=== PATIENT | female | born 1950 | race Caucasian/White ===

== ENCOUNTER 2017-05-09 08:02 | Outpatient (CLI) | payer MEDICARE, BC ==
[2017-05-09 10:55] LABS: Hemoglobin 14.5 g/dL (12.0-16.0); Mean Corpuscular Hemoglobin 28.3 pg (27.0-31.0); Mean Corpuscular Volume 88.5 fl (81.0-99.0); Mean Platelet Volume 7.9 fL (7.4-10.4); Platelet Count 210 thou/uL (130-400); RBC Distribution Width 11.9 % (11.5-14.5); Red Blood Cell (RBC) Count 5.12 mill/uL (4.20-5.40); White Blood Cell (WBC) Count 7.6 thou/uL (4.8-10.8)
[2017-05-09 10:57] LABS: PTT 28.3 SEC (22.9-36.1); Prothrombin Time 13.3 SEC (12.0-14.7)
[2017-05-09 11:02] LABS: Bilirubin Negative (Negative); Blood, Urine Negative (Negative); Glucose, Urine (Dipstick) Negative (Negative); Leukocyte Small (Negative); Nitrite Negative (Negative); Protein, Urine (Dipstick) Negative (Neg-Trace); Urobilinogen 0.2 mg/dL (0.2-1.0); pH, Urine 6.5 (5.0-9.0)
[2017-05-09 11:03] LABS: Clarity CLEAR (Clear)
[2017-05-09 11:04] LABS: Bacteria/HPF 2+ HPF (None Seen); Hyaline Casts/LPF NONE SEEN LPF (0-3 Hyaline); RBC/HPF None Seen HPF (0-3); Squamous Epithelial 0-3 HPF (0-3)
[2017-05-09 11:14] LABS: Anion Gap 11 mmol/L (10-20); BUN (Urea Nitrogen) 18 mg/dL (9.8-20.1); Calc. Creatinine Clearance 0 mL/min (70-130); Calcium 9.6 mg/dL (7.8-10.44); Carbon Dioxide 28 mmol/L (23-31); Chloride 104 mmol/L (98-107); Estimated GFR-MDRD 52; Glucose 164 mg/dL (80-115); Potassium 3.9 mmol/L (3.5-5.1); Sodium 139 mmol/L (136-145)
--- NOTE | 2017-06-05 11:04 | EKG ---
Test Reason : Blood Pressure : / mmHG Vent. Rate : 059 BPM Atrial Rate : 059 BPM P-R Int : 182 ms QRS Dur : 074 ms QT Int : 418 ms P-R-T Axes : 059 033 034 degrees QTc Int : 413 ms Sinus bradycardia Low voltage QRS Abnormal ECG When compared with ECG of 30-MAY-2016 13:36, Nonspecific T wave abnormality has replaced inverted T waves in Inferior leads T wave amplitude has decreased in Lateral leads Confirmed by SHAW MILES M.D. ([id number] on 06/05/2017 11:04:20 AM Referred By: HANNAH Confirmed By:SHAW MILES M.D.
== END 2017-05-09 08:03 | disposition home or self-care (01) ==
LOC: LABBT 08:02
PROVIDERS: ATTEND Orthopaedic Surgery
DX: Z01.818 Encounter for other preprocedural examination (principal); Z96.652 Presence of left artificial knee joint
CPT/HCPCS: 80048; 81001; 85027; 85610; 85730; 86850; 86900; 86901; 87081; 93005; 93010

== ENCOUNTER 2017-05-16 06:55 | Day surgery (SDC) | payer MEDICARE, BC ==
[2017-05-09 08:49] VITALS: BMI 32.4
[2017-05-16] MEDS ORDERED: Fentanyl 100 MCG/2 ML VIAL ONE (08:05)
[2017-05-16] MEDS ORDERED: Midazolam HCl 2 mg/2 ml Vial ONE (08:05)
[2017-05-16] MEDS ORDERED: Lidocaine 1% (PF) 30 ML VIAL ONE (08:09)
[2017-05-16] MEDS ORDERED: CEFAZOLIN/Water 2 GM/20 ML SYRINGE ONE (08:16)
[2017-05-16] MEDS ORDERED: Vancomycin HCl 1.5 GM, Admixture Fee 1 EACH in Sodium Chloride 0.9% 250 ML 300 ML IVPB SCH (08:30)
[2017-05-16] MEDS ORDERED: Acetaminophen 1,000 MG in Premix Bag 1 BAG IVPB PRN (08:40)
[2017-05-16] MEDS ORDERED: Ondansetron HCl/PF 4 MG/2 ML Vial IVP PRN ×2 (08:41→11:56)
[2017-05-16] MEDS ORDERED: Promethazine HCl 25 MG/ML VIAL IM PRN ×2 (08:41→11:56)
[2017-05-16] MEDS ORDERED: Fentanyl 100 MCG/2 ML VIAL IV PRN (08:41)
[2017-05-16] MEDS ORDERED: traMADol HCl 50 MG TAB PO PRN ×2 (08:41)
[2017-05-16] MEDS ORDERED: Zolpidem Tartrate 5 MG TAB PO PRN (08:41)
[2017-05-16] MEDS ORDERED: Levofloxacin 500 mg/D5W 100 ml Premix Bag ONE (09:13)
[2017-05-16] MEDS ORDERED: Bupivacaine/Epinephrine 0.25% 30 ML VIAL ONE ×2 (09:50→13:05)
[2017-05-16] MEDS ORDERED: Ondansetron HCl/PF 4 MG/2 ML Vial ONE ×2 (11:27→13:52)
[2017-05-16] MEDS ORDERED: Tranexamic Acid 1,000 MG in Sodium Chloride 0.9% 100 ML IVPB SCH (11:45)
[2017-05-16 11:50] LABS: Bilirubin Negative (Negative); Blood, Urine Negative (Negative); Clarity CLEAR (Clear); Glucose, Urine (Dipstick) Negative (Negative); Leukocyte Negative (Negative); Nitrite Negative (Negative); Protein, Urine (Dipstick) Negative (Neg-Trace)
[2017-05-16 11:52] LABS: Bacteria/HPF None Seen HPF (None Seen); Hyaline Casts/LPF 0-3 HYALINE CAST LPF (0-3 Hyaline); Pathc Cast-AUWi Flag 0.72 (0-2.49); Squamous Epithelial 0-3 HPF (0-3); WBC/HPF None Seen HPF (0-3)
[2017-05-16] MEDS ORDERED: Promethazine HCl 25 MG/ML VIAL SLOW IVP PRN (11:56)
--- NOTE | 2017-05-16 12:51 | RAD ---
TWO VIEWS OF THE LEFT KNEE: Comparison: 04-07-15 FINDINGS: Since the comparison examination there has been interval placement of a left total knee prosthesis. T he prostatic component projects in the expected position. The calcified lesion involving the distal f emur appears unchanged from the comparison examination, likely reflecting an old bone infarct or smal l low grade chondral lesion. IMPRESSION: Post op. POS: [facility]
[2017-05-16] MEDS ORDERED: Bupivacaine HCl 0.5%/Epinephrine 1:200,000/PF 30 ml Vial ONE (13:05)
[2017-05-16] MEDS ORDERED: PHENYLEPHRINE-NS 100 MCG/ML 10 ML SYRINGE ONE (13:52)
[2017-05-16] MEDS ORDERED: PROPOFOL 200 MG/20 ML VIAL ONE (13:52)
[2017-05-16] MEDS ORDERED: Dexamethasone 20 MG/5 ML VIAL ONE (13:52)
[2017-05-16] MEDS ORDERED: Acetaminophen 325 MG TAB PO PRN (14:07)
[2017-05-16] MEDS ORDERED: oxyCODONE/Acetaminophen 5 mg/325 mg Tablet PO PRN (14:07)
[2017-05-16] MEDS ORDERED: diphenhydrAMINE 25 MG CAP PO PRN (14:07)
[2017-05-16] MEDS ORDERED: Fentanyl 100 MCG/2 ML VIAL SLOW IVP PRN (14:07)
--- NOTE | 2017-05-16 15:04 | OP ---
DATE OF PROCEDURE: 05/16/2017 PREOPERATIVE DIAGNOSIS: Left knee osteoarthritis, valgus. POSTOPERATIVE DIAGNOSIS: Left knee osteoarthritis, valgus. PROCEDURE PERFORMED: Left total knee arthroplasty. STAFF: Morgan Kapadia M.D. OCEAN FISHING GUIDE: Alex Maloney PA-C. ANESTHESIA: Judah. LMA, adductor canal single shot sciatic blocks. ESTIMATED BLOOD LOSS: 150 mL. TOURNIQUET TIME: 92 minutes at 300 mmHg. ANTIBIOTICS: Ancef 2 grams, vancomycin 1.5, Levaquin 500 mg. IMPLANTS: A size #4 Triathlon CR femur, size 4 tibial baseplate, a S27 patella and a 4 CS tibia, 4 x 9 mm CS X3 poly. COMPLICATIONS: None. HISTORY OF PRESENT ILLNESS: Ms. Barajas is a 66-year-old female presenting with left knee pain, she had a valgus knee. I discussed with patient the risks, benefits of left total knee arthroplasty to i nclude pain, scar, bleeding, infection, damage to vital structures, loss of life, limb, decreased ran ge of motion or strength. The patient understood these risks and benefits and elected to proceed. T he patient's left lower extremity was prepped and draped in sterile fashion. Tourniquet was brought up and left up for 92 minutes. Anterior midline incision medial patellar approach was used to excise the fat pad, excised medial soft tissue, femur, patellar, removed osteophytes, exposed distal tibia mapped out the femur, cut at 11 and 2, which is just a skin cut off of the lateral femoral condyle du e to our cut. We placed our block, pinned it into place. We actually sized to 5 without notching, t he 4 seemed like it would notch, but felt like it notched medial lateral so we cut a 5 to begin, cut anterior and posterior, removed the osteophytes. We moved to the tibia, exposed our tibia, excised t he medial lateral portion of the anterior mid lateral meniscus. We everted. We had placed our pickl e fork in place to expose the posterior PCL retractor to expose the tibia. We cut initially and 5 a nd moved to a 4 and a 7 mm because of the tightness of the procedure. We cut our tibia, excised our soft tissue, to decompress the PCL, removed the posterior osteophytes, put our tray into place, put o ur [address], put our #[address]. We had good flexion and extension, but we were jus t very tight. I was concerned about how tight we were as well as our inability to track for our dawn lla, we cut our tibia. We resized the femur down to 4 from a 5 because the patella did not track deondre te as well. We everted, cut our patella, cut 2 and A27 patella placed in position, had better tracki ng, After completion of this, we went from 24 at the thickness down to about 12, placed an A27. We then notched left lateral release to help with our tracking of patella, washed. We placed our keel, drilled our holes for our femur, cemented our tibia, our femur, placed a 9 mm poly, cemented our dawn llar insert, washed, closed with #2 Vicryl, #2 Quill, 0 Quill, 2-0 Quill, and glue. The patient will follow the [facility] protocol. The patient will be followed in-house.
--- NOTE | 2017-05-16 15:23 | PDOC.PN ---
- Subjective Encounter Start Date: 05/16/17 Encounter Start Time: 15:21 -: old records requested/rev Subjective: admitted for left knee replacement -: consulted for medical management Patient seen and examined. No new complaints. No overnight events - Objective MAR Reviewed: Yes Vital Signs & Weight: Weight Weight 195 lb Radiology Reviewed by me: Yes (knee xray) Phys Exam - Physical Examination Constitutional: NAD HEENT: PERRLA, moist MMs, sclera anicteric Neck: no JVD, supple Respiratory: no wheezing, no rales, no rhonchi Cardiovascular: RRR, no significant murmur, no rub Gastrointestinal: soft, non-tender, no distention, positive bowel sounds Musculoskeletal: no edema, pulses present left knee with dressing Neurological: non-focal, normal sensation Psychiatric: normal affect, A&O x 3 Dx/Plan - Plan cont current plan of care, PT/OT * continue aspirin for DVT prophylaxis as per protocol * continue protonix for GI prophylaxis * Code status: Full code * Home medication reconciled * continue PT/OT as per [facility] protocol treatment. * Pain control with pain meds * medication reviewed as below * symptomatic treatment.. Review of Systems - Review of Systems Constitutional: negative: fever, chills, sweats, weakness, malaise, other ENT: negative: Ear Pain, Ear Discharge, Nose Pain, Nose Discharge, Nose Congestion, Mouth Pain, Mouth Swelling, Throat Pain, Throat Swelling, Other Respiratory: negative: Cough, Dry, Shortness of Breath, Hemoptysis, SOB with Excertion, Pleuritic Pain, Sputum, Wheezing Cardiovascular: negative: chest pain, palpitations, orthopnea, paroxysmal nocturnal dyspnea, edema, light headedness, other Gastrointestinal: negative: Nausea, Vomiting, Abdominal Pain, Diarrhea, Constipation, Melena, Hematochezia, Other Genitourinary: negative: Dysuria, Frequency, Incontinence, Hematuria, Retention , Other Musculoskeletal: negative: Neck Pain, Shoulder Pain, Arm Pain, Back Pain, Hand Pain, Leg Pain, Foot Pain, Other Skin: negative: Rash, Lesions, Arsenio, Bruising, Other - Medications/Allergies Allergies/Adverse Reactions: Allergies Allergy/AdvReac Type Severity Reaction Status Date / Time hydrocodone Allergy Intermediate ITCHING, Verified 05/09/17 08:50 AND SWELLING Medications: Current Medications Acetaminophen (Tylenol) 650 mg PO Q4H PRN PRN Reason: PRATT/ T > 101F; Mild Pain (1-3) Aspirin (Ecotrin) 81 mg PO BID [facility] Cefazolin Sodium (Ancef) 2 gm SLOW IVP 0100,0900,1700 [facility] Stop: 05/17/17 01:01 Diphenhydramine HCl (Benadryl) 25 mg PO Q6H PRN PRN Reason: Itching Fentanyl (Sublimaze) 50 mcg IV Q1H PRN PRN Reason: BREAKTHROUGH PAIN Fentanyl (Sublimaze) 100 mcg SLOW IVP Q1H PRN PRN Reason: Severe Pain (7-10) Ferrous Gluconate (Fergon) 324 mg PO BID [facility] Acetaminophen 1,000 mg/ Device 100 mls @ 400 mls/hr IVPB Q6H PRN PRN Reason: Fever/Mild Pain Stop: 05/17/17 08:41 Bupivacaine HCl 50 ml/ Sodium (Chloride) 100 mls @ 0 mls/hr NERVE BLCK INF [facility]I PRN Reason: As Directed Dextrose/Sodium Chloride (D5 1/2 Ns) 1,000 mls @ 100 mls/hr IV .Q10H [facility] Levofloxacin 500 mg/ Device 100 mls @ 100 mls/hr IVPB 0900 [facility] Stop: 05/17/17 09:59 Vancomycin HCl 1.5 gm/ Sodium (Chloride) 300 mls @ 200 mls/hr IVPB 2100 [facility] Stop: 05/16/17 22:29 Iron/Minerals/Multivitamins (Theragran M) 1 tab PO DAILY [facility] Ketorolac Tromethamine (Toradol) 15 mg IVP Q6HR [facility] Stop: 05/18/17 06:01 Ondansetron HCl (Zofran) 4 mg IVP Q6H PRN PRN Reason: Nausea/Vomiting Oxycodone/Acetaminophen (Percocet 5/325) 2 tab PO Q4H PRN PRN Reason: Pain Promethazine HCl (Phenergan) 12.5 mg IM Q4H PRN PRN Reason: Nausea Senna/Docusate Sodium (Senokot S) 2 tab PO BID [facility] Sodium Chloride (Flush - Normal Saline) 10 ml IVF Q12HR [facility] Sodium Chloride (Flush - Normal Saline) 10 ml IVF PRN PRN PRN Reason: Saline Flush Tramadol HCl (Ultram) 50 mg PO Q6H PRN PRN Reason: Mild Pain (1-3) Tramadol HCl (Ultram) 100 mg PO Q6H PRN PRN Reason: Moderate Pain 4-6 Zolpidem Tartrate (Ambien) 5 mg PO HSPRN PRN PRN Reason: Insomnia History of Present Illnes - History of Present Illness Reason for Visit: admitted for left knee replacement History of Present Illness: s/p left total knee replacement failed outpt conservative treatment pain controlled - Past Medical History Cardiac: HTN Gastrointestinal: GERD Musculoskeletal: Osteoarthritis ENT: Allergic rhinitis Endocrine: Hypothyroidism - Past Surgical History Past Surgical History: Cholecystectomy, Hernia Repair (umbilical hernia ), Other (left foot surgery, cyst removed from neck, finger surgery, lasik eye surgery), Total Knee Replacement - Past Family History Family History: CVA - Past Social History Smoke: Quit (in 1987) Alcohol: Occassional Drugs: None Lives: With Family Domestic Violence: Negative
[2017-05-16] MEDS ORDERED: Loperamide HCl 2 MG CAP PO PRN (15:30)
[2017-05-16] MEDS ORDERED: Sodium Chloride 0.65% Nasal 44 ML BOT EA NARE PRN (15:30)
[2017-05-16] MEDS ORDERED: Eucerin (Mineral Oil/Petrolatum,White) 30 gm Jar TOP PRN (15:30)
[2017-05-16] MEDS ORDERED: Artificial Tears 18 DROP/0.9 ML EA EYE PRN (15:30)
[2017-05-16] MEDS ORDERED: hydrALAZINE 20 MG/ML VIAL SLOW IVP PRN (15:30)
[2017-05-16] MEDS ORDERED: Chloraseptic Spray 180 ml Bottle PO PRN (15:30)
[2017-05-16] MEDS ORDERED: Milk Of Magnesia 30 ML UDCUP PO PRN (15:30)
[2017-05-16] MEDS ORDERED: Diabetic Tussin 200 MG/10 ML UDCUP PO PRN (15:30)
[2017-05-16] MEDS ORDERED: Senokot 8.6 MG TAB PO PRN (15:30)
[2017-05-16] MEDS ORDERED: Ondansetron ODT 4 MG TAB PO PRN (15:30)
[2017-05-16] MEDS ORDERED: Mag-Al 1200 mg/1200 mg/30 ML UDCUP PO PRN (15:30)
[2017-05-16] MEDS: Ketorolac Tromethamine 30 MG/ML VIAL IVP SCH ×2 (17:57→17:58)
[2017-05-16] MEDS: Dextrose 5 %-0.45 % NaCl 1,000 ML IV SCH (18:06)
[2017-05-16] MEDS: CEFAZOLIN/Water 2 GM/20 ML SYRINGE SLOW IVP SCH (18:48)
[2017-05-16] MEDS ORDERED: Vancomycin HCl 1.5 GM in Sodium Chloride 0.9% 250 ML 300 ML IVPB SCH (21:00)
[2017-05-16] MEDS: Ferrous Gluconate 324 MG TAB PO SCH (21:36)
[2017-05-16] MEDS: Senokot S 8.6-50 MG TAB PO SCH (21:37)
[2017-05-16] MEDS: Aspirin 81 mg Enteric Coated Tablet PO SCH (21:39)
[2017-05-17] MEDS: Bupivacaine 0.5% 50 ML in Sodium Chloride 0.9% 50 ML NERVE BLCK SCH ×2 (00:53→16:37)
[2017-05-17] MEDS: Ketorolac Tromethamine 30 MG/ML VIAL IVP SCH ×5 (00:58→23:41)
[2017-05-17] MEDS: Dextrose 5 %-0.45 % NaCl 1,000 ML IV SCH ×3 (01:00→20:12)
[2017-05-17] MEDS: CEFAZOLIN/Water 2 GM/20 ML SYRINGE SLOW IVP SCH (03:09)
[2017-05-17 05:46] LABS: Hemoglobin 12.4 g/dL (12.0-16.0); Mean Corpuscular HGB CONC 32.9 g/dL (32.0-36.0); Mean Corpuscular Hemoglobin 29.1 pg (27.0-31.0); Mean Corpuscular Volume 88.2 fl (81.0-99.0); Mean Platelet Volume 8.2 fL (7.4-10.4); Platelet Count 158 thou/uL (130-400); RBC Distribution Width 11.7 % (11.5-14.5); Red Blood Cell (RBC) Count 4.27 mill/uL (4.20-5.40); White Blood Cell (WBC) Count 14.5 thou/uL (4.8-10.8)
[2017-05-17] MEDS: Levothyroxine Sodium 125 MCG TAB PO SCH (05:56)
[2017-05-17] MEDS: Valsartan 80 MG TAB PO SCH (08:44)
[2017-05-17] MEDS: Hydrochlorothiazide 25 MG TAB PO SCH (08:44)
[2017-05-17] MEDS: Spironolactone 25 MG TAB PO SCH (08:45)
[2017-05-17] MEDS: Multivitamin W/ Minerals 1 TAB PO SCH (08:45)
[2017-05-17] MEDS: Vit A,C & E/Lutein/Minerals Tablet PO SCH (08:45)
[2017-05-17] MEDS: Multivit, Therapeutic 1 TAB PO SCH (08:45)
[2017-05-17] MEDS: Ferrous Gluconate 324 MG TAB PO SCH ×2 (08:45→20:18)
[2017-05-17] MEDS: Senokot S 8.6-50 MG TAB PO SCH ×2 (08:46→20:19)
[2017-05-17] MEDS: Aspirin 81 mg Enteric Coated Tablet PO SCH ×2 (08:46→20:18)
[2017-05-17] MEDS ORDERED: Non-Formulary Item 1 EACH (Valsartan/Hydrochlorothiazide [Valsartan-Hctz 320-12.5 Mg Tab] PO SCH (09:00)
--- NOTE | 2017-05-17 09:05 | PDOC.PN ---
- Subjective Encounter Start Date: 05/17/17 Encounter Start Time: 07:45 Patient seen and examined. No new complaints. No overnight events - Objective Resuscitation Status: Resuscitation Status FULL:Full Resuscitation MAR Reviewed: Yes Vital Signs & Weight: Vital Signs (12 hours) Temp Pulse Resp BP BP Pulse Ox 05/17/17 07:15 97.4 F L 63 16 119/84 92 L 05/17/17 04:39 97.9 F 67 18 122/71 93 L 05/16/17 23:47 97.9 F 67 18 124/72 92 L Weight Weight 195 lb I&O: 05/16/17 05/17/17 05/18/17 06:59 06:59 06:59 Intake Total 2040 Output Total 1150 Balance 890 Result Diagrams: 05/17/17 05:14 Phys Exam - Physical Examination Constitutional: NAD HEENT: PERRLA, moist MMs, sclera anicteric Neck: no JVD, supple Respiratory: no wheezing, no rales, no rhonchi Cardiovascular: RRR, no significant murmur, no rub Gastrointestinal: soft, non-tender, no distention, positive bowel sounds Musculoskeletal: no edema, pulses present left knee surgical site is clean Neurological: non-focal, normal sensation, moves all 4 limbs Lymphatic: no nodes Psychiatric: normal affect, A&O x 3 Skin: no rash, normal turgor Dx/Plan (1) Status post total left knee replacement Code(s): Z96.652 - PRESENCE OF LEFT ARTIFICIAL KNEE JOINT Status: Acute (2) GERD (gastroesophageal reflux disease) Code(s): K21.9 - GASTRO-ESOPHAGEAL REFLUX DISEASE WITHOUT ESOPHAGITIS Status: Chronic (3) Hypertension Code(s): I10 - ESSENTIAL (PRIMARY) HYPERTENSION Status: Chronic (4) Hypothyroidism Code(s): E03.9 - HYPOTHYROIDISM, UNSPECIFIED Status: Chronic (5) Obesity (BMI 30.0-34.9) Code(s): E66.9 - OBESITY, UNSPECIFIED Status: Chronic - Plan cont current plan of care, plan discussed w/ family, PT/OT * continue aspirin for DVT prophylaxis as per protocol * continue protonix for GI prophylaxis * Code status: Full code * continue Home medication * continue PT/OT as per [facility] protocol treatment. * Pain control with pain meds * medication reviewed as below * symptomatic treatment * continue nerve block * will sign off * call if needed. Review of Systems - Review of Systems Constitutional: negative: fever, chills, sweats, weakness, malaise, other Eyes: negative: Pain, Vision Change, Conjunctivae Inflammation, Eyelid Inflammation, Redness, Other ENT: negative: Ear Pain, Ear Discharge, Nose Pain, Nose Discharge, Nose Congestion, Mouth Pain, Mouth Swelling, Throat Pain, Throat Swelling, Other Respiratory: negative: Cough, Dry, Shortness of Breath, Hemoptysis, SOB with Excertion, Pleuritic Pain, Sputum, Wheezing Cardiovascular: negative: chest pain, palpitations, orthopnea, paroxysmal nocturnal dyspnea, edema, light headedness, other Gastrointestinal: negative: Nausea, Vomiting, Abdominal Pain, Diarrhea, Constipation, Melena, Hematochezia, Other Genitourinary: negative: Dysuria, Frequency, Incontinence, Hematuria, Retention , Other Musculoskeletal: negative: Neck Pain, Shoulder Pain, Arm Pain, Back Pain, Hand Pain, Leg Pain, Foot Pain, Other Skin: negative: Rash, Lesions, Arsenio, Bruising, Other Neurological: negative: Weakness, Numbness, Incoordination, Change in Speech, Confusion, Seizures, Other - Medications/Allergies Allergies/Adverse Reactions: Allergies Allergy/AdvReac Type Severity Reaction Status Date / Time hydrocodone Allergy Intermediate ITCHING, Verified 05/09/17 08:50 AND SWELLING Medications: Current Medications Acetaminophen (Tylenol) 650 mg PO Q4H PRN PRN Reason: PRATT/ T > 101F; Mild Pain (1-3) Al Hydroxide/Mg Hydroxide (Maalox) 15 ml PO Q4H PRN PRN Reason: Heartburn or Indigestion Artificial Tears (Tears Naturale) 0 drop EA EYE PRN PRN PRN Reason: Dry Eyes Aspirin (Ecotrin) 81 mg PO BID [facility] Last Admin: 05/17/17 08:46 Dose: 81 mg Diphenhydramine HCl (Benadryl) 25 mg PO Q6H PRN PRN Reason: Itching Fentanyl (Sublimaze) 50 mcg IV Q1H PRN PRN Reason: BREAKTHROUGH PAIN Ferrous Gluconate (Fergon) 324 mg PO BID [facility] Last Admin: 05/17/17 08:45 Dose: 324 mg Guaifenesin (Robitussin Sf) 200 mg PO Q4H PRN PRN Reason: Cough Hydralazine HCl (Apresoline) 10 mg SLOW IVP Q4H PRN PRN Reason: Systolic BP > 180 Hydrochlorothiazide (Hydrochlorothiazide) 12.5 mg PO DAILY [facility] Last Admin: 05/17/17 08:44 Dose: 12.5 mg Bupivacaine HCl 50 ml/ Sodium (Chloride) 100 mls @ 0 mls/hr NERVE BLCK INF [facility] PRN Reason: As Directed Last Admin: 05/17/17 00:53 Dose: 100 mls Dextrose/Sodium Chloride (D5 1/2 Ns) 1,000 mls @ 100 mls/hr IV .Q10H [facility] Last Admin: 05/17/17 01:00 Dose: Not Given Levofloxacin 500 mg/ Device 100 mls @ 100 mls/hr IVPB 0900 [facility] Stop: 05/17/17 09:59 Last Admin: 05/17/17 08:51 Dose: 100 mls Iron/Minerals/Multivitamins (Theragran M) 1 tab PO DAILY [facility] Last Admin: 05/17/17 08:45 Dose: 1 tab Ketorolac Tromethamine (Toradol) 15 mg IVP Q6HR [facility] Stop: 05/18/17 06:01 Last Admin: 05/17/17 05:56 Dose: 15 mg Levothyroxine Sodium (Synthroid) 125 mcg PO 0600 [facility] Last Admin: 05/17/17 05:56 Dose: 125 mcg Loperamide HCl (Imodium) 2 mg PO PRN PRN PRN Reason: Diarrhea/Loose Stools Magnesium Hydroxide (Milk Of Magnesium) 30 ml PO DAILYPRN PRN PRN Reason: Constipation Metoprolol Succinate ([facility] Xl) [facility] [place] Admin: 05/17/17 08:44 Dose: 50 mg Mineral Oil/White Petrolatum (Eucerin Cream) 0 gm TOP BIDPRN PRN PRN Reason: Dry Skin Multivitamins (Theragran) [facility] [place] Last Admin: 05/17/17 08:45 Dose: Not Given Multivitamins/Minerals (Ocuvite With Lutein) 1 tab PO QAM [facility] Last Admin: 05/17/17 08:45 Dose: 1 tab Ondansetron HCl (Zofran) 4 mg IVP Q6H PRN PRN Reason: Nausea/Vomiting Ondansetron HCl (Zofran Odt) 4 mg PO Q6H PRN PRN Reason: Nausea/Vomiting Oxycodone/Acetaminophen (Percocet 5/325) 2 tab PO Q4H PRN PRN Reason: Pain Pantoprazole Sodium (Protonix) [facility] [place] Last Admin: 05/17/17 08:45 Dose: 80 mg Phenol (Chloraseptic [place] 180 Ml Bot) 0 ml PO PRN PRN PRN Reason: Sore Throat Promethazine HCl (Phenergan) 12.5 mg IM Q4H PRN PRN Reason: Nausea Senna (Senokot) 2 tab PO HSPRN PRN PRN Reason: Constipation Senna/Docusate Sodium (Senokot S) 2 tab PO BID [facility] Last Admin: 05/17/17 08:46 Dose: 2 tab Sodium Chloride (Flush - Normal Saline) 10 ml IVF Q12HR [facility] Last Admin: 05/17/17 09:04 Dose: Not Given Sodium Chloride (Flush - Normal Saline) 10 ml IVF PRN PRN PRN Reason: Saline Flush Sodium Chloride (Boyle Nasal [place] 0.65%) 0 ml EA NARE QIDPRN PRN PRN Reason: Nasal Congestion Spironolactone (Aldactone) 25 mg PO QAM [facility] Last Admin: 05/17/17 08:45 Dose: 25 mg Tramadol HCl (Ultram) 50 mg PO Q6H PRN PRN Reason: Mild Pain (1-3) Tramadol HCl (Ultram) 100 mg PO Q6H PRN PRN Reason: Moderate Pain 4-6 Valsartan (Diovan) 320 mg PO DAILY [facility] Last Admin: 05/17/17 08:44 Dose: 320 mg Zolpidem Tartrate (Ambien) 5 mg PO HSPRN PRN PRN Reason: Insomnia
--- NOTE | 2017-05-17 10:24 | DIS ---
DATE OF ADMISSION: 05/16/2017 DATE OF CONSULT: 05/16/2017 DATE OF DISCHARGE: Pending. PRIMARY ATTENDING: Dr. Morgan Kapadia. PRIMARY DISCHARGE DIAGNOSIS: Status post left total knee replacement. SECONDARY DISCHARGE DIAGNOSES: Gastroesophageal reflux disease, hypertension, hypothyroidism, obesit y with BMI 32. PRIMARY PROCEDURES AND OPERATIONS: Left total knee replacement. RADIOLOGICAL INVESTIGATION: Knee x-ray. SIGNIFICANT LABORATORY DATA: Hemoglobin 12.4. Urinalysis normal. DISCHARGE MEDICATIONS: Cranberry 500 mg p.o. daily, Synthroid 125 mcg p.o. daily, Toprol-XL 50 mg p. o. daily, multivitamin 1 tablet p.o. daily, Protonix 80 mg p.o. daily, Aldactone 25 mg p.o. daily, va lsartan with hydrochlorothiazide one tablet p.o. daily, multivitamin 1 capsule p.o. daily. Patient w ill get aspirin for DVT prophylaxis as well as patient will get pain medication as per primary team. CONTRAINDICATIONS: None. CODE STATUS: FULL CODE. INPATIENT CONSULTANTS: Dr. Kapadia was primary. [facility] team was consulted for medical comanagement. ALLERGIES: HYDROCODONE. DISCHARGE PLAN: Post hospital, the patient will follow up with Dr. Isaura Vallecillo and Dr. Morgan elias as instructed. HOSPITAL COURSE: A 66-year-old female who was electively admitted for left total knee replacement by Dr. Kapadia, which was done on 05/16/2017 without any complication. Postoperatively, at [facility], [facility] team was consulted for medical comanagement. We resumed patient's home medication while in hospital. The patient's pain was controlled with pain medication. The patient did very well wit h physical therapy as per [facility] protocol treatment. On discharge, the patient will contin ue all her previous home medications. She was given aspirin for deep venous thrombosis prophylaxis. Patient is seen and examined at bedside today. Please see my progress note from today for further d etail. The patient's all medical problems are stable and we will sign off. Call us if needed.
[2017-05-18] MEDS: Bupivacaine 0.5% 50 ML in Sodium Chloride 0.9% 50 ML NERVE BLCK SCH (00:45)
[2017-05-18] MEDS: Ketorolac Tromethamine 30 MG/ML VIAL IVP SCH (06:15)
[2017-05-18] MEDS: Levothyroxine Sodium 125 MCG TAB PO SCH (06:16)
[2017-05-18] MEDS: Dextrose 5 %-0.45 % NaCl 1,000 ML IV SCH (07:33)
[2017-05-18 07:55] LABS: Hemoglobin 11.2 g/dL (12.0-16.0); Mean Corpuscular HGB CONC 32.5 g/dL (32.0-36.0); Mean Corpuscular Hemoglobin 28.4 pg (27.0-31.0); Mean Corpuscular Volume 87.6 fl (81.0-99.0); Mean Platelet Volume 8.4 fL (7.4-10.4); Platelet Count 167 thou/uL (130-400); RBC Distribution Width 12.1 % (11.5-14.5); Red Blood Cell (RBC) Count 3.92 mill/uL (4.20-5.40); White Blood Cell (WBC) Count 9.8 thou/uL (4.8-10.8)
[2017-05-18] MEDS: Valsartan 80 MG TAB PO SCH (08:10)
[2017-05-18] MEDS: Spironolactone 25 MG TAB PO SCH (08:10)
[2017-05-18] MEDS: Aspirin 81 mg Enteric Coated Tablet PO SCH (08:10)
[2017-05-18] MEDS: Ferrous Gluconate 324 MG TAB PO SCH (08:10)
[2017-05-18] MEDS: Senokot S 8.6-50 MG TAB PO SCH (08:10)
[2017-05-18] MEDS: Multivit, Therapeutic 1 TAB PO SCH (08:10)
[2017-05-18] MEDS: Vit A,C & E/Lutein/Minerals Tablet PO SCH (08:10)
[2017-05-18] MEDS: Hydrochlorothiazide 25 MG TAB PO SCH (08:11)
[2017-05-18] MEDS: Multivitamin W/ Minerals 1 TAB PO SCH (08:17)
[2017-05-18 08:31] VITALS: BP 112/60; TEMP 98.1
== END 2017-05-18 11:15 | disposition home or self-care (01) ==
LOC: SDC 06:55 → SJJU 14:04 → SDC 05-18 11:15
PROVIDERS: ATTEND Orthopaedic Surgery
PROC: 0SRD0J9 Replacement of Left Knee Joint with Synthetic Substitute, Cemented, Open Approach (ICD-10-PCS; principal; 2017-05-16)
DX: M17.12 Unilateral primary osteoarthritis, left knee (principal); M19.049 Primary osteoarthritis, unspecified hand; K21.9 Gastro-esophageal reflux disease without esophagitis; I10 Essential (primary) hypertension; E03.9 Hypothyroidism, unspecified; E66.9 Obesity, unspecified; Z68.32 Body mass index [BMI] 32.0-32.9, adult; Z88.5 Allergy status to narcotic agent; Z79.899 Other long term (current) drug therapy
CPT/HCPCS: 27447; 73560; 81001; 85027; 86850; 86900; 86901; 97110 ×2; 97116 ×3; 97139 ×4; 97150; 97530; C1713; C1776; G8978; G8979; 36415; A4216; J0670; J1100; J1885; J1956; J2001; J2250; J2405; J2704; J3010; J3370; J3490; J7050

== ENCOUNTER 2017-10-06 11:29 | Outpatient (CLI) | payer MEDICARE, BC | END 2017-10-06 11:30 | disposition home or self-care (01) | LOC: BICMAMMO 11:29 | PROVIDERS: ATTEND Family Medicine | DX: Z12.31 Encounter for screening mammogram for malignant neoplasm of breast (principal); N64.89 Other specified disorders of breast | CPT/HCPCS: 77063; 77067 ==

== ENCOUNTER 2017-10-19 08:51 | Outpatient (CLI) | payer MEDICARE, BC | END 2017-10-19 08:52 | disposition home or self-care (01) | LOC: BICMAMMO 08:51 | PROVIDERS: ATTEND Family Medicine | DX: N63.11 Unspecified lump in the right breast, upper outer quadrant (principal); N63.22 Unspecified lump in the left breast, upper inner quadrant | CPT/HCPCS: 76642 ×2; 77066; G0279 ==

== ENCOUNTER → 2017-10-27 | Day surgery (SDC) | payer MEDICARE, BC | LOC: BICULT 12:27 | PROVIDERS: ATTEND Family Medicine | PROC: 0HBV3ZX Excision of Bilateral Breast, Percutaneous Approach, Diagnostic (ICD-10-PCS; principal; 2017-10-27) | DX: C50.812 Malignant neoplasm of overlapping sites of left female breast (principal); C50.411 Malignant neoplasm of upper-outer quadrant of right female breast; Z79.82 Long term (current) use of aspirin; Z79.899 Other long term (current) drug therapy; Z88.5 Allergy status to narcotic agent | CPT/HCPCS: 19083; 19084; 77066; 88305; 88341; 88342 ==

== ENCOUNTER 2017-12-11 10:51 | Outpatient (CLI) | payer MEDICARE, BC ==
[2017-12-11 11:56] LABS: #Basophils 0.1 thou/uL (0.0-0.2); #Eosinphils 0.1 thou/uL (0.0-0.7); #Lymphocytes 2.3 thou/uL (1.20-3.40); #Monocytes 0.6 thou/uL (0.11-0.59); #Neutrophils 3.3 thou/uL (1.40-6.50); %Lymphocytes 36.1 % (21.0-51.0); %Monocytes 8.9 % (0.0-10.0); %Neutrophils 51.9 % (42.0-75.0); Hemoglobin 12.5 g/dL (12.0-16.0); Mean Corpuscular HGB CONC 31.2 g/dL (32.0-36.0); Mean Corpuscular Hemoglobin 26.2 pg (27.0-31.0); Mean Corpuscular Volume 83.8 fL (78.0-98.0); Mean Platelet Volume 7.9 fL (7.4-10.4); Platelet Count 203 thou/uL (130-400); RBC Distribution Width 12.8 % (11.5-14.5); Red Blood Cell (RBC) Count 4.76 mill/uL (4.20-5.40); White Blood Cell (WBC) Count 6.4 thou/uL (4.8-10.8)
[2017-12-11 12:16] LABS: Anion Gap 11 mmol/L (10-20); BUN (Urea Nitrogen) 13 mg/dL (9.8-20.1); Calc. Creatinine Clearance 0 mL/min (70-130); Calcium 9.3 mg/dL (7.8-10.44); Carbon Dioxide 28 mmol/L (23-31); Chloride 104 mmol/L (98-107); Estimated GFR-MDRD 52; Glucose 131 mg/dL (80-115); Sodium 139 mmol/L (136-145)
--- NOTE | 2017-12-11 15:12 | RAD ---
PA AND LATERAL VIEWS CHEST: Date: 12/11/17 HISTORY: Preoperative evaluation. FINDINGS: Comparison made with exam of 03/19/18. The heart size is normal. The aorta is tortuous. The lungs are expanded without focal areas of consol idation, pneumothorax, or pleural effusions. There is suggestion of a hiatal hernia. IMPRESSION: No radiographic evidence of acute cardiopulmonary process. POS: [facility]
--- NOTE | 2017-12-11 16:58 | EKG ---
Test Reason : Blood Pressure : / mmHG Vent. Rate : 055 BPM Atrial Rate : 055 BPM P-R Int : 174 ms QRS Dur : 068 ms QT Int : 418 ms P-R-T Axes : 059 043 017 degrees QTc Int : 399 ms Sinus bradycardia Low voltage QRS Cannot rule out Anterior infarct (cited on or before 11-DEC-2017) Abnormal ECG When compared with ECG of 09-MAY-2017 09:04, No significant change was found Confirmed by DR. Rene MILLER ([id number]) on 12/11/2017 4:57:52 PM Referred By: SENG Confirmed By:DR. Rene MILLER
== END 2017-12-11 10:52 | disposition home or self-care (01) ==
LOC: LABBT 10:51
PROVIDERS: ATTEND Specialist
DX: Z01.818 Encounter for other preprocedural examination (principal); C50.911 Malignant neoplasm of unspecified site of right female breast; C50.912 Malignant neoplasm of unspecified site of left female breast
CPT/HCPCS: 71046; 80048; 85025; 93005; 93010

== ENCOUNTER 2017-12-19 07:09 | Day surgery (SDC) | payer MEDICARE, BC ==
[2017-12-19] MEDS ORDERED: Bupivacaine/Epinephrine 0.25% 30 ML VIAL ONE (10:18)
[2017-12-19] MEDS ORDERED: Lidocaine 2% PF 5 ML VIAL ONE (10:18)
[2017-12-19] MEDS ORDERED: Isosulfan Blue 50 MG/5 ML VIAL ONE ×2 (10:18→10:40)
[2017-12-19] MEDS ORDERED: Fentanyl 250 MCG/5 ML VIAL ONE (10:23)
[2017-12-19] MEDS ORDERED: Midazolam HCl 2 mg/2 ml Vial ONE (10:23)
[2017-12-19] MEDS ORDERED: CEFAZOLIN 2 GM/50 ML BAG ONE (10:38)
[2017-12-19] MEDS ORDERED: Ketorolac Tromethamine 30 MG/ML VIAL ONE (10:38)
--- NOTE | 2017-12-19 11:26 | NM ---
BILATERAL BREAST LYMPHOSCINTIGRAPHY: HISTORY: Malignant neoplasm of unspecified female breast. Bilateral breast cancer. TECHNIQUE: Bilateral breast lymphoscintigraphy was performed, following the periareolar injection of 400 microcu kristina of technetium 99m filtered sulfur colloid in each breast. Planar imaging was performed followin g the injection. FINDINGS: There is visualization of lymph nodes in the axillae on either side. IMPRESSION: [place] lymph node (s) in both axillae. POS: [facility]
[2017-12-19] MEDS ORDERED: HYDROmorphone 2 MG/ML VIAL ONE (13:17)
[2017-12-19] MEDS ORDERED: PROPOFOL 200 MG/20 ML VIAL ONE (16:10)
[2017-12-19] MEDS ORDERED: Ondansetron PF 4 MG/2 ML Vial ONE (16:10)
[2017-12-19] MEDS ORDERED: Glycopyrrolate 0.2 MG/ML 5 ML SYRINGE ONE (16:10)
[2017-12-19] MEDS ORDERED: Lidocaine 1% PF 5 ML VIAL ONE (16:10)
[2017-12-19] MEDS ORDERED: Dexamethasone 20 MG/5 ML VIAL ONE (16:10)
[2017-12-19] MEDS ORDERED: ePHEDrine/0.9% NaCl/PF SYRINGE 50 mg/10 ml ONE (16:10)
[2017-12-19] MEDS ORDERED: PHENYLEPHRINE-NS 100 MCG/ML 10 ML SYRINGE ONE (16:10)
[2017-12-19] MEDS ORDERED: Promethazine HCl 25 MG/ML VIAL SLOW IVP PRN (16:32)
[2017-12-19] MEDS ORDERED: Promethazine HCl 25 MG/ML VIAL IM PRN ×2 (16:32→18:06)
[2017-12-19] MEDS ORDERED: Ondansetron HCl/PF 4 MG/2 ML Vial IVP PRN (16:32)
[2017-12-19] MEDS ORDERED: HYDROmorphone 2 MG/ML VIAL SLOW IVP PRN (16:32)
[2017-12-19] MEDS ORDERED: traMADol HCl 50 MG TAB PO PRN ×2 (18:06)
[2017-12-19] MEDS ORDERED: Dextrose 50% Abboject 50 ML SYRINGE SLOW IVP PRN (18:06)
[2017-12-19] MEDS ORDERED: hydrALAZINE 20 MG/ML VIAL SLOW IVP PRN (18:06)
[2017-12-19] MEDS ORDERED: Dextrose 5% in Water 1,000 ML IV PRN (18:06)
[2017-12-19] MEDS ORDERED: Morphine 2 MG/ML SYRINGE SLOW IVP PRN (18:17)
[2017-12-19] MEDS: Lactated Ringer's 1,000 ML IV SCH (18:37)
[2017-12-19] MEDS: Ondansetron PF 4 MG/2 ML Vial IVP PRN (18:41)
[2017-12-19] MEDS: Famotidine 20 MG TAB PO SCH (21:54)
[2017-12-19 23:08] VITALS: BMI 33.3
[2017-12-20] MEDS: Ondansetron PF 4 MG/2 ML Vial IVP PRN ×2 (00:42→06:40)
--- NOTE | 2017-12-20 00:55 | OP ---
DATE OF PROCEDURE: 12/19/2017 PREOPERATIVE DIAGNOSIS: Bilateral breast cancer. POSTOPERATIVE DIAGNOSIS: Bilateral breast cancer. PROCEDURES PERFORMED: Bilateral skin sparing mastectomy using a Recinos pattern incisions, bilateral ax illary sentinel lymph node biopsy. SURGEON: Jorge Strange M.D. MANAGER COMBINATION: Jerardo Dean, medical student. ANESTHESIA: General endotracheal per Rohith Brock CRNA. INDICATIONS: The patient is a 67-year-old white female. She was found to have bilateral breast mass es that were each biopsy proven to be invasive ductal carcinoma. She also underwent bilateral fine n eedle aspiration biopsies of potentially enlarged lymph nodes in the axilla . After discussion of options, she has decided to proceed with a bilateral mastectomy and is interested in reconstructio n. Since she has substantial breast ptosis and very large breasts, after plastic surgical consultati on, she has elected to proceed with the mastectomy in a skin-sparing fashion so as to achieve breast reduction prior to reconstruction. DESCRIPTION OF PROCEDURE: The patient underwent lymphoscintigraphy preoperatively revealing bilatera l sentinel lymph nodes in the axilla. She was then taken to the operating room where general endotra cheal anesthesia obtained with the patient in supine position. A 3 mL of Lymphazurin was infiltrated into each periareolar subdermal locations and massaged for five minutes. Bilateral breasts and axil la were then prepped with ChloraPrep and draped in sterile fashion. Attention was turned first to th e left side. Incisions were created along the Recinos pattern that had been marked preoperatively. Att ention was turned to the lateral aspect. Following the planes of dissection, I was able to elevate t he skin flap up towards the axilla. In this location, I utilized the Neoprobe to identify areas of m aximum radio intensity. These were dissected. I eventually found four lymph nodes. All four of the se were significantly radioactive and two of them were blue stained. These were each dissected circu mferentially and all investing tissue was divided between clamps and 3-0 silk ties. These lymph node s were passed off the field to pathology. Touch prep performed during the operation was negative. The Recinos pattern incision was completed. All dissection was carried out using the plasma blade. The flaps were raised medially, superiorly, and inferiorly. The breast was swept off the chest wall in a medial to lateral fashion. Efforts were made to avoid carrying the dissection into the axilla. Th e specimen was tagged for orientation and passed off the field. Not mentioned above is that on the inferior flap, a small arc of skin was included on the inferior fl ap. This arc of tissue was deepithelialized sharply. The wound was thoroughly irrigated with steril e water. Meticulous hemostasis was obtained with electrocautery. Two separate #19 round fluted drai ns were brought out laterally and secured with a 3-0 nylon suture. One of these was placed inferiorl y and the other superiorly. The lateral drain also entered the axilla before extending superiorly. The skin incisions were then closed using a running suture of 3-0 Vicryl to approximate the deep subc utaneous tissue. The skin edges were approximated with running subcuticular suture of 4-0 Monocryl. Dermabond was placed external to the incision. Sterile occlusive dressing was applied over the drai n exit site. An identical operation was performed on the right side. On the right side, three lymph nodes rather than four lymph nodes were removed. These were also touch prep negative. On the right side, I also encountered the malignancy as it was relatively superficial. This was at about the 10 o'clock radian . Although the margins were grossly negative, there were close enough to the anterior aspect that I obtained a new anterior margin in the area overlying the malignancy and submitted this as a separate specimen. In so doing, I exposed the underside of the dermis and therefore could dissect no further. There was no evidence of visible or palpable malignancy on the anterior flap either before or after I took the additional margin. At the completion of bilateral operations, dressings were applied using fluffed gauze and an Papa wrap . There were no complications. The patient tolerated the procedure well and was taken to recovery r oom in stable condition.
[2017-12-20 04:44] LABS: #Lymphocytes 1.1 thou/uL (1.20-3.40); #Monocytes 0.9 thou/uL (0.11-0.59); #Neutrophils 9.5 thou/uL (1.40-6.50); %Basophils 0.2 % (0.0-1.0); %Eosinophils 0.1 % (0.0-10.0); %Lymphocytes 9.4 % (21.0-51.0); %Monocytes 7.5 % (0.0-10.0); %Neutrophils 82.8 % (42.0-75.0); Hemoglobin 10.3 g/dL (12.0-16.0); Mean Corpuscular HGB CONC 31.7 g/dL (32.0-36.0); Mean Corpuscular Hemoglobin 26.7 pg (27.0-31.0); Mean Corpuscular Volume 84.3 fL (78.0-98.0); Platelet Count 176 thou/uL (130-400); RBC Distribution Width 12.9 % (11.5-14.5); Red Blood Cell (RBC) Count 3.85 mill/uL (4.20-5.40); White Blood Cell (WBC) Count 11.5 thou/uL (4.8-10.8)
[2017-12-20 05:00] LABS: Anion Gap 10 mmol/L (10-20); BUN (Urea Nitrogen) 20 mg/dL (9.8-20.1); Calc. Creatinine Clearance 80 mL/min (70-130); Calcium 8.2 mg/dL (7.8-10.44); Carbon Dioxide 26 mmol/L (23-31); Chloride 102 mmol/L (98-107); Estimated GFR-MDRD 60; Glucose 168 mg/dL (80-115); Potassium 4.3 mmol/L (3.5-5.1); Sodium 134 mmol/L (136-145)
[2017-12-20 08:23] VITALS: BP 123/56; TEMP 98
[2017-12-20] MEDS ORDERED: Enoxaparin Sodium 40 MG/0.4 ML SYRINGE SC SCH (09:00)
[2017-12-20] MEDS: Lactated Ringer's 1,000 ML IV SCH (09:30)
[2017-12-20] MEDS: Famotidine 20 MG TAB PO SCH (09:30)
== END 2017-12-20 11:44 | disposition home or self-care (01) ==
LOC: SDC 07:09 → SURG A 17:08 → SDC 12-20 11:44
PROVIDERS: ATTEND Specialist
PROC: 0HBV0ZZ Excision of Bilateral Breast, Open Approach (ICD-10-PCS; principal; 2017-12-19)
PROC: 07B60ZX Excision of Left Axillary Lymphatic, Open Approach, Diagnostic (ICD-10-PCS; 2017-12-19)
PROC: 07B50ZX Excision of Right Axillary Lymphatic, Open Approach, Diagnostic (ICD-10-PCS; 2017-12-19)
DX: C50.411 Malignant neoplasm of upper-outer quadrant of right female breast (principal); C50.812 Malignant neoplasm of overlapping sites of left female breast; C77.3 Secondary and unspecified malignant neoplasm of axilla and upper limb lymph nodes; E03.9 Hypothyroidism, unspecified; K21.9 Gastro-esophageal reflux disease without esophagitis; I10 Essential (primary) hypertension; Z87.891 Personal history of nicotine dependence; Z17.0 Estrogen receptor positive status [ER+]; Z79.899 Other long term (current) drug therapy; Z88.5 Allergy status to narcotic agent
CPT/HCPCS: 19301; 38525; 38900; 78195; 80048; 85025; 88305; 88307; 88331; 88333; 88334; A9541; Q9968; 36415; 88309; J0131; J1100; J1170; J1885; J2001; J2250; J2270; J2405; J2704; J3010

== ENCOUNTER 2018-02-15 09:17 | Outpatient (CLI) | payer MEDICARE, BC ==
--- NOTE | 2018-02-15 11:27 | BD ---
DEXA BONE DENSITY STUDY: HISTORY: Menopausal female. FINDINGS: Lumbar Spine: BMD (g/cm2) L1 1.086 T-Score: +0.9 L2 1.074 T-Score: +0.4 L3 1.335 T-Score: +2.3 L4 1.169 T-Score: +1.0 L1-L4 1.173 T-Score: +1.1 Within normal limits with no increased risk for fracture. Femoral Neck: 0.835 T-Score: -0.1 Total Femur: 1.085 T-Score: +1.2 Within normal limits with no increased risk for fracture. Impression: FRAX score not reported because all T scores at or above -1.0. POS: [facility]ARRO
== END 2018-02-15 09:18 | disposition home or self-care (01) ==
LOC: BICMAMMO 09:17
PROVIDERS: ATTEND Internal Medicine Hematology & Oncology
DX: Z78.0 Asymptomatic menopausal state (principal)
CPT/HCPCS: 77080

== ENCOUNTER 2019-10-16 08:29 | Outpatient (CLI) | payer MEDICARE, BC ==
--- NOTE | 2019-10-16 08:44 | BD ---
EXAM: Bone densitometry using DEXA HISTORY: 68 yo female. Screening for postmenopausal osteoporosis FINDINGS: L1--bone mineral density 1.083 g/sq cm; T score 0.8 ; Z score 2.8 L2--bone mineral density 1.155 g/sq cm; T score 1.2 ; Z score 3.3 L3--bone mineral density 1.232 g/sq cm; T score 1.3 ; Z score 3.6 L4--bone mineral density 1.138 g/sq cm; T score 0.7 ; Z score 3.0 Total L1-L4--bone mineral density 1.152 g/sq cm; T score 1.0 ; Z score 3.1 Left femoral neck--bone mineral density0.781; T score -0.6 ; Z score 1.2 Total proximal left femur--bone mineral density 0.977; T score 0.3 ; Z score 1.8 There has been an interval reduction of 1.8% in the BMD of the lumbar spine and a reduction of 10% in the BMD of the proximal femur since the previous study of 02/15/2018. IMPRESSION: Normal BMD
== END 2019-10-16 08:30 | disposition home or self-care (01) ==
LOC: BICMAMMO 08:29
PROVIDERS: ATTEND Internal Medicine Hematology & Oncology
DX: Z13.820 Encounter for screening for osteoporosis (principal); Z78.0 Asymptomatic menopausal state
CPT/HCPCS: 77080

== ENCOUNTER 2020-11-02 13:57 | Outpatient (CLI) | payer MEDICARE, BC | END 2020-11-02 13:58 | disposition home or self-care (01) | LOC: BICMAMMO 13:57 | PROVIDERS: ATTEND Internal Medicine Hematology & Oncology | DX: Z13.820 Encounter for screening for osteoporosis (principal); M85.851 Other specified disorders of bone density and structure, right thigh; T38.6X5A Adverse effect of antigonadotrophins, antiestrogens, antiandrogens, not elsewhere classified, initial encounter | CPT/HCPCS: 77080 ==

== ENCOUNTER 2021-03-11 10:33 | Outpatient (CLI) | payer MEDICARE, BC ==
[2021-03-11 11:48] LABS: #Eosinphils 0.1 10x3/uL (0.0-0.5); #Monocytes 0.6 10x3/uL (0.0-1.1); #Neutrophils 2.7 10x3/uL (1.5-8.4); %Basophils 0.6 % (0.0-2.0); %Eosinophils 1.9 % (0.0-6.0); %Lymphocytes 35.7 % (18.0-47.0); %Monocytes 10.4 % (0.0-10.0); Hemoglobin 13.5 g/dL (12.0-15.5); Mean Corpuscular HGB CONC 31.5 g/dL (32.0-36.0); Mean Corpuscular Hemoglobin 27.6 pg (27.0-33.0); Mean Corpuscular Volume 87.7 fl (81.6-98.3); Mean Platelet Volume 9.9 fl (7.4-10.4); Platelet Count 196 10x3/uL (150-450); RBC Distribution Width 13.2 % (11.5-14.5); Red Blood Cell (RBC) Count 4.89 10x6/uL (3.90-5.03); White Blood Cell (WBC) Count 5.3 10x3/uL (3.5-10.5)
[2021-03-11 11:54] LABS: Anion Gap 13 mmol/L (10-20); BUN (Urea Nitrogen) 17 mg/dL (9.8-20.1); Calc. Creatinine Clearance 0 mL/min (70-130); Calcium 9.5 mg/dL (7.8-10.44); Carbon Dioxide 27 mmol/L (23-31); Chloride 104 mmol/L (98-107); Glucose 118 mg/dL (83-110); Potassium 4.2 mmol/L (3.5-5.1); Sodium 140 mmol/L (136-145)
[2021-03-11 18:27] LABS: SARS-CoV-2 PCR by NAA Not Detected (NotDetected)
== END 2021-03-11 10:34 | disposition home or self-care (01) ==
LOC: LABBT 10:33
PROVIDERS: ATTEND Orthopaedic Surgery
DX: Z01.818 Encounter for other preprocedural examination (principal); M17.11 Unilateral primary osteoarthritis, right knee; Z20.822 Contact with and (suspected) exposure to COVID-19
CPT/HCPCS: 80048; 85025; 85610; 87081; 93005; U0003; U0005; 93010

== ENCOUNTER 2021-03-11 11:00 | Inpatient (IN) | payer MEDICARE, BC ==
[2021-03-05 15:17] VITALS: BMI 28.3
[2021-03-16] MEDS ORDERED: Sodium Chloride 0.9% 100 ML ONE (05:57)
[2021-03-16] MEDS ORDERED: Tranexamic Acid 1,000 MG/10 ML VIAL ONE ×2 (05:57→09:10)
[2021-03-16] MEDS ORDERED: Vancomycin 1 GM/200 ML BAG ONE (05:57)
[2021-03-16] MEDS ORDERED: Fentanyl 100 MCG/2 ML VIAL ONE ×5 (06:28→09:59)
[2021-03-16] MEDS ORDERED: EPINEPHrine 1 MG/ML AMP ONE (06:33)
[2021-03-16] MEDS ORDERED: Bupivacaine 0.25% HCL 30 ML VIAL ONE (06:33)
[2021-03-16] MEDS ORDERED: Midazolam HCl 2 mg/2 ml Vial ONE (06:38)
[2021-03-16] MEDS ORDERED: ceFAZolin 2 GM/Dextrose 50 ML IVPB ONE (06:50)
[2021-03-16] MEDS ORDERED: Ondansetron PF 4 MG/2 ML Vial ONE ×2 (07:20→10:01)
[2021-03-16] MEDS ORDERED: PROPOFOL 200 MG/20 ML VIAL ONE (07:20)
[2021-03-16] MEDS ORDERED: Lidocaine 1% PF 5 ML VIAL ONE (07:20)
[2021-03-16] MEDS ORDERED: Bupivacaine HCl 0.5%/Epinephrine 1:200,000/PF 30 ml Vial ONE (07:20)
[2021-03-16] MEDS ORDERED: ePHEDrine 50 MG/ML VIAL ONE (07:20)
[2021-03-16] MEDS ORDERED: Fentanyl 100 MCG/2 ML VIAL SLOW IVP PRN (07:36)
[2021-03-16] MEDS ORDERED: Ropivacaine 0.2% 550 ML 550 ML NERVE BLCK SCH (07:45)
[2021-03-16] MEDS ORDERED: Zolpidem Tartrate 5 MG TAB PO PRN ×2 (07:45→11:11)
[2021-03-16] MEDS ORDERED: Promethazine HCl 25 MG/ML VIAL IM PRN ×3 (07:45→11:11)
[2021-03-16] MEDS ORDERED: Ondansetron PF 4 MG/2 ML Vial IVP PRN ×2 (07:45→11:11)
[2021-03-16] MEDS ORDERED: traMADol HCl 50 MG TAB PO PRN ×4 (07:45→11:11)
[2021-03-16] MEDS ORDERED: Acetaminophen 325 MG TAB PO SCH (09:00)
[2021-03-16] MEDS ORDERED: Ondansetron HCl/PF 4 MG/2 ML Vial IVP PRN (09:08)
[2021-03-16] MEDS ORDERED: Promethazine HCl 25 MG/ML VIAL IVPB PRN (09:08)
[2021-03-16] MEDS ORDERED: Ketorolac Tromethamine 30 MG/ML VIAL ONE (09:10)
[2021-03-16] MEDS ORDERED: Promethazine HCl 25 MG/ML VIAL ONE (10:01)
[2021-03-16] MEDS ORDERED: Acetaminophen 325 MG TAB PO PRN (11:11)
[2021-03-16] MEDS ORDERED: diphenhydrAMINE 25 MG CAP PO PRN (11:11)
[2021-03-16] MEDS ORDERED: Aspirin 81 mg Enteric Coated Tablet PO SCH (11:45)
[2021-03-16] MEDS ORDERED: Ketorolac Tromethamine 30 MG/ML VIAL IVP SCH (12:00)
[2021-03-16] MEDS ORDERED: Dextrose 5% in Water 1,000 ML IV PRN (12:43)
[2021-03-16] MEDS ORDERED: HumaLOG 300 UNITS/3 ML VIAL SC PRN ×2 (12:43)
[2021-03-16] MEDS ORDERED: Dextrose 50% Abboject 50 ML SYRINGE SLOW IVP PRN (12:43)
[2021-03-16] MEDS: Acetaminophen 325 MG TAB PO SCH ×3 (12:48→20:32)
[2021-03-16] MEDS ORDERED: Scopolamine 1.5 mg/72 hour Patch TD SCH (14:00)
[2021-03-16] MEDS: Ketorolac Tromethamine 30 MG/ML VIAL IVP SCH ×2 (14:57→20:31)
[2021-03-16] MEDS: Sodium Chloride 0.9% 1,000 ML IV SCH (14:58)
[2021-03-16] MEDS ORDERED: ceFAZolin 2 GM/Dextrose 50 ML 2 GM in Premix Bag 1 BAG IVPB SCH (15:00)
[2021-03-16] MEDS: CEFAZOLIN 2 GM in Sodium Chloride 0.9% 100 ML IVPB SCH (17:22)
[2021-03-16] MEDS ORDERED: Vancomycin HCl 1.5 GM in Sodium Chloride 0.9% 250 ML 300 ML IVPB SCH (20:00)
[2021-03-16] MEDS: Aspirin 81 mg Enteric Coated Tablet PO SCH (20:32)
[2021-03-17] MEDS: CEFAZOLIN 2 GM in Sodium Chloride 0.9% 100 ML IVPB SCH (00:01)
[2021-03-17] MEDS: Acetaminophen 325 MG TAB PO SCH ×4 (00:01→12:36)
[2021-03-17] MEDS: Sodium Chloride 0.9% 1,000 ML IV SCH ×2 (00:18→12:25)
[2021-03-17] MEDS: Ketorolac Tromethamine 30 MG/ML VIAL IVP SCH ×3 (03:15→16:06)
[2021-03-17] MEDS ORDERED: Levothyroxine 150 MCG TAB PO SCH (06:00)
[2021-03-17 06:22] LABS: Hemoglobin 10.6 g/dL (12.0-16.0); Mean Corpuscular HGB CONC 32.6 g/dL (32.0-36.0); Mean Corpuscular Hemoglobin 28.9 pg (27.0-31.0); Mean Corpuscular Volume 88.7 fL (78.0-98.0); Mean Platelet Volume 7.3 fL (7.4-10.4); Platelet Count 126 thou/uL (130-400); RBC Distribution Width 12.1 % (11.5-14.5); Red Blood Cell (RBC) Count 3.68 mill/uL (4.20-5.40); White Blood Cell (WBC) Count 5.5 thou/uL (4.8-10.8)
[2021-03-17] MEDS ORDERED: Ferrous Gluconate 324 MG TAB PO SCH (08:00)
[2021-03-17] MEDS ORDERED: Spironolactone 25 MG TAB PO SCH (08:00)
[2021-03-17] MEDS: Aspirin 81 mg Enteric Coated Tablet PO SCH (08:57)
[2021-03-17] MEDS ORDERED: Multivitamin W/ Minerals 1 TAB PO SCH (09:00)
[2021-03-17] MEDS ORDERED: Anastrozole 1 MG TAB PO SCH (09:00)
[2021-03-17] MEDS ORDERED: Senokot S 8.6-50 MG TAB PO SCH (09:00)
[2021-03-17] MEDS ORDERED: metFORMIN 500 MG TAB PO SCH (12:00)
[2021-03-17 12:08] VITALS: BP 120/67; TEMP 97.5
[2021-03-18] MEDS ORDERED: metFORMIN 500 MG TAB PO SCH (08:00)
== END 2021-03-17 16:57 | disposition home or self-care (01) | DRG 470 ==
LOC: SURG A 03-16 05:50 → SURG B 03-16 11:04
PROVIDERS: ADMIT Orthopaedic Surgery; ATTEND Orthopaedic Surgery
PROC: 0SRC0J9 Replacement of Right Knee Joint with Synthetic Substitute, Cemented, Open Approach (ICD-10-PCS; principal; 2021-03-16)
DX: M17.11 Unilateral primary osteoarthritis, right knee (principal); E03.9 Hypothyroidism, unspecified; K21.9 Gastro-esophageal reflux disease without esophagitis; I10 Essential (primary) hypertension; K59.00 Constipation, unspecified; E11.9 Type 2 diabetes mellitus without complications; M21.061 Valgus deformity, not elsewhere classified, right knee; E66.9 Obesity, unspecified; Z68.28 Body mass index [BMI] 28.0-28.9, adult; Z79.4 Long term (current) use of insulin; Z88.8 Allergy status to other drugs, medicaments and biological substances; Z79.899 Other long term (current) drug therapy; Z79.890 Hormone replacement therapy; Z79.84 Long term (current) use of oral hypoglycemic drugs; Z90.13 Acquired absence of bilateral breasts and nipples; Z85.3 Personal history of malignant neoplasm of breast; Z81.1 Family history of alcohol abuse and dependence; Z82.3 Family history of stroke; Z82.49 Family history of ischemic heart disease and other diseases of the circulatory system; Z87.891 Personal history of nicotine dependence; Z90.49 Acquired absence of other specified parts of digestive tract; Z98.42 Cataract extraction status, left eye; Z98.41 Cataract extraction status, right eye
CPT/HCPCS: 36415; 36416; 85027; A4306; C1713; J0171; J0690; J1885; J2250; J2405; J2550; J2704; J2795; J3010; J3370; J3490; J7050; S0020

== ENCOUNTER 2021-05-20 13:30 | Outpatient (CLI) | payer MEDICARE, BC | END 2021-05-20 13:31 | disposition home or self-care (01) | LOC: BICRAD 13:30 | PROVIDERS: ATTEND Internal Medicine Rheumatology | DX: M19.021 Primary osteoarthritis, right elbow (principal); M47.22 Other spondylosis with radiculopathy, cervical region | CPT/HCPCS: 72052 ==

== ENCOUNTER 2021-10-13 10:11 | Outpatient (CLI) | payer MEDICARE, BC | END 2021-10-13 10:12 | disposition home or self-care (01) | LOC: BICMAMMO 10:11 | PROVIDERS: ATTEND Internal Medicine Hematology & Oncology | DX: M85.80 Other specified disorders of bone density and structure, unspecified site (principal); Z78.0 Asymptomatic menopausal state | CPT/HCPCS: 77080 ==

== ENCOUNTER 2024-12-04 15:25 | Outpatient (CLI) | payer MEDICARE, BC | END 2024-12-04 15:26 | disposition home or self-care (01) | LOC: BICMAMMO 15:25 | PROVIDERS: ATTEND Physician Assistant | DX: Z78.0 Asymptomatic menopausal state (principal); M85.851 Other specified disorders of bone density and structure, right thigh; M85.852 Other specified disorders of bone density and structure, left thigh | CPT/HCPCS: 77080 ==